=== PATIENT | female | born 1940 | race Hispanic/Latino ===

== ENCOUNTER 2016-09-07 12:37 | Inpatient (IN) | payer OTHER ==
[~2016-09-07] VITALS: Ht 175.3 cm; Wt 86.3 kg
[~2016-09-07 12:37] MED LIST: AMLODIPINE BESYL5 MG PO; ATIVAN0.5 MG PO; DIVALPROEX SOD250 M1 PO; ENALAPRIL MALEA20 MG PO; HYDROCHLOROTHIA25 MG PO; ISOSORBIDE DINI10 MG PO; LIPITOR40 MG PO; METOPROLOL TART25 MG PO; PREDNISONE20 MG PO; QUETIAPINE FUMA25 MG PO; RISPERDAL0.5 MG PO; SERTRALINE HCL50 MG PO; TRAZODONE HCL50 MG PO; VENTOLIN HFA18 GM IH
[2016-09-07 13:32] LABS: EOSINOPHIL (%) 1.5 % (0-5); EOSINOPHIL COUNT 0.1 K/uL (0-0.3); HEMATOCRIT 30.9 % (38.0-50.0); IMMATURE GRANULOCYTE (%) 0.2 % (0.0-0.7); INSTRUMENT ABS NEUTROPHIL CT 4.6 K/uL; LYMPHOCYTE COUNT 2.8 K/uL (1.0-2.8); MCH 28.3 PG (29.0-34.0); MCHC 33.7 G/DL (30.0-36.0); MCV 84.2 FL (86-99); MEAN PLAT.VOLUME 8.8 uM^3 (9.0-12.4); MONOCYTE (%) 9.9 % (3-12); MONOCYTE COUNT 0.8 K/uL (0-0.8); NEUTROPHIL (%) 54.5 % (45-76); NEUTROPHIL COUNT 4.6 K/uL (1.8-6.4); PLATELET COUNT 227 K/uL (156-360); RBC DIS.WIDTH-CV 12.9 % (11.8-14.6); RBC DIS.WIDTH-SD 39.2 % (39-53); RED BLOOD COUNT 3.67 M/uL (4.00-5.50); WHITE BLOOD COUNT 8.5 K/uL (4.1-10.2)
[2016-09-07 13:40] LABS: CHLORIDE 93 mEq/L (99-109); POTASSIUM 3.7 mEq/L (3.7-5.4); SODIUM 131 mEq/L (136-147)
[2016-09-07 13:44] LABS: ANION GAP 12 MEQ/L (2-14); PROTHROMBIN TIME 11.5 SEC (10.2-12.9)
[2016-09-07 13:45] LABS: TOTAL BILIRUBIN 0.3 mg/dL (0.0-1.0)
[2016-09-07 13:46] LABS: PTT 29.9 SEC (25-37)
[2016-09-07 13:47] LABS: GFR ESTIMATE (CALCULATED) 57 mL/min/
[2016-09-07 13:48] LABS: DIRECT BILIRUBIN 0.2 mg/dL (0.0-0.3)
[2016-09-07 13:53] LABS: TROP-I INTERPRETATION NEGATIVE; TROPONIN-I < 0.01 ng/mL (0.0-0.30)
[2016-09-07 14:01] LABS: GLUCOSE 88 mg/dL (70-99)
[2016-09-07 14:04] LABS: ALKALINE PHOSPHATASE 39 IU/L (3-129)
[2016-09-07 14:06] LABS: UREA NITROGEN (BUN) 17 mg/dL (9-23)
[2016-09-07 14:08] LABS: LIPASE 46 U/L (1.0-51.0)
[2016-09-07] MEDS ORDERED: ATORVASTATIN CA40 MG PO (15:05)
[2016-09-07] MEDS ORDERED: DONEPEZIL HCL10 MG PO (15:06)
[2016-09-07] MEDS ORDERED: METOPROLOL TART25 MG PO (15:07)
[2016-09-07] MEDS ORDERED: QUETIAPINE FUMA25 MG PO (15:07)
[2016-09-07] MEDS ORDERED: BUSPIRONE HCL5 MG PO (15:07)
[2016-09-07] MEDS ORDERED: ENALAPRIL MALEA20 MG PO (15:08)
[2016-09-07] MEDS ORDERED: OMEPRAZOLE20 MG PO (15:09)
[2016-09-07] MEDS ORDERED: LO-DOSE ASPIRIN81 M1 PO (15:10)
[2016-09-07] MEDS ORDERED: HYDROCHLOROTHIA25 MG PO (15:10)
[2016-09-07] MEDS ORDERED: NEURONTIN100 MG PO (15:11)
[2016-09-07] MEDS ORDERED: SYNTHROID25 MCG PO (15:11)
[2016-09-07] MEDS ORDERED: GABAPENTIN100 MG PO ×2 (16:03→16:04)
[2016-09-07] MEDS ORDERED: QUETIAPINE FUM100 MG PO (16:04)
[2016-09-07 19:14] LABS: TROP-I INTERPRETATION NEGATIVE; TROPONIN-I 0.01 ng/mL (0.0-0.30)
[2016-09-07 19:40] VITALS: BP 145/80
[2016-09-07 20:16] LABS: HEMATOCRIT 33.1 % (38.0-50.0); MCV 85.3 FL (86-99)
[2016-09-08 00:12] VITALS: BP 115/65
[2016-09-08 01:06] LABS: TROP-I INTERPRETATION NEGATIVE; TROPONIN-I < 0.01 ng/mL (0.0-0.30)
[2016-09-08 05:44] VITALS: BP 113/59
[2016-09-08 08:54] LABS: HEMATOCRIT 32.3 % (38.0-50.0); MCH 28.5 PG (29.0-34.0); MCHC 33.4 G/DL (30.0-36.0); MCV 85.2 FL (86-99); MEAN PLAT.VOLUME 8.8 uM^3 (9.0-12.4); PLATELET COUNT 221 K/uL (156-360); RBC DIS.WIDTH-CV 13.1 % (11.8-14.6); RBC DIS.WIDTH-SD 40.1 % (39-53); RED BLOOD COUNT 3.79 M/uL (4.00-5.50)
[2016-09-08 09:21] LABS: ALKALINE PHOSPHATASE 35 IU/L (3-129); ANION GAP 9 MEQ/L (2-14); CHLORIDE 100 MEQ/L (99-109); GFR ESTIMATE (CALCULATED) > 59 mL/min/; GLUCOSE 85 mg/dL (70-99); POTASSIUM 3.9 MEQ/L (3.7-5.4); SAMPLE HEMOLYSIS CHECK 0; SAMPLE ICTERIC CHECK 0; SAMPLE LIPEMIA CHECK 0; SODIUM 135 MEQ/L (136-147); TOTAL BILIRUBIN 0.4 MG/DL (0.0-1.0); UREA NITROGEN (BUN) 13 mg/dL (9-23)
[2016-09-08 11:34] VITALS: BP 141/75
[2016-09-08 14:03] LABS: MAGNESIUM 1.8 mg/dl (1.3-2.7)
[2016-09-08 16:10] VITALS: BP 113/57
[2016-09-08 20:29] LABS: HEMATOCRIT 33.9 % (38.0-50.0); MCV 86.7 FL (86-99)
[2016-09-08 20:32] VITALS: BP 174/82
[2016-09-09 00:04] VITALS: BP 138/66
[2016-09-09 08:27] LABS: HEMATOCRIT 33.9 % (38.0-50.0); MCV 87.4 FL (86-99)
[2016-09-09 08:43] VITALS: BP 143/69
[2016-09-09 12:53] LABS: POC NON-PRINT COM 1 ND
[2016-09-09 13:35] LABS: MAGNESIUM 1.8 mg/dl (1.3-2.7); SODIUM 136 MEQ/L (136-147)
[2016-09-09 14:20] LABS: ALKALINE PHOSPHATASE 36 IU/L (3-129); DIRECT BILIRUBIN 0.1 mg/dL (0.0-0.3); TOTAL BILIRUBIN 0.4 MG/DL (0.0-1.0)
[2016-09-09 16:01] VITALS: BP 174/80
[2016-09-09 18:26] VITALS: BP 130/62
[2016-09-09 19:50] VITALS: BP 149/73
[2016-09-09 20:07] LABS: HEMATOCRIT 32.6 % (38.0-50.0); MCV 86.5 FL (86-99)
[2016-09-09 23:16] VITALS: BP 160/85
[2016-09-10] VITALS (7 sets, daily range): BP systolic 142–188; BP diastolic 72–96
[2016-09-10 06:40] LABS: HEMATOCRIT 29.5 % (38.0-50.0); MCH 28.1 PG (29.0-34.0); MCHC 32.5 G/DL (30.0-36.0); MCV 86.3 FL (86-99); MEAN PLAT.VOLUME 9.2 uM^3 (9.0-12.4); PLATELET COUNT 231 K/uL (156-360); RBC DIS.WIDTH-CV 13.2 % (11.8-14.6); RBC DIS.WIDTH-SD 41.4 % (39-53); RED BLOOD COUNT 3.42 M/uL (4.00-5.50); WHITE BLOOD COUNT 7.3 K/uL (4.1-10.2)
[2016-09-10 20:41] LABS: HEMATOCRIT 34.1 % (38.0-50.0); MCV 86.5 FL (86-99)
[2016-09-11] VITALS (8 sets, daily range): BP systolic 137–215; BP diastolic 74–97
[2016-09-11 06:36] LABS: HEMATOCRIT 30.7 % (38.0-50.0); MCH 29.5 PG (29.0-34.0); MCHC 34.2 G/DL (30.0-36.0); MCV 86.2 FL (86-99); MEAN PLAT.VOLUME 9.3 uM^3 (9.0-12.4); PLATELET COUNT 240 K/uL (156-360); RBC DIS.WIDTH-CV 13.1 % (11.8-14.6); RBC DIS.WIDTH-SD 41.2 % (39-53); RED BLOOD COUNT 3.56 M/uL (4.00-5.50); WHITE BLOOD COUNT 8.1 K/uL (4.1-10.2)
[2016-09-11 20:46] LABS: HEMATOCRIT 34.8 % (38.0-50.0); MCV 85.9 FL (86-99)
[2016-09-12 04:36] VITALS: BP 139/73
[2016-09-12 06:58] LABS: HEMATOCRIT 30.1 % (38.0-50.0); MCH 29.4 PG (29.0-34.0); MCHC 34.2 G/DL (30.0-36.0); MEAN PLAT.VOLUME 9.3 uM^3 (9.0-12.4); PLATELET COUNT 238 K/uL (156-360); RBC DIS.WIDTH-CV 13.3 % (11.8-14.6); RBC DIS.WIDTH-SD 41.8 % (39-53); WHITE BLOOD COUNT 9.1 K/uL (4.1-10.2)
[2016-09-12 07:26] LABS: ANION GAP 9 MEQ/L (2-14); CHLORIDE 101 MEQ/L (99-109); GFR ESTIMATE (CALCULATED) > 59 mL/min/; GLUCOSE 86 mg/dL (70-99); POTASSIUM 3.2 MEQ/L (3.7-5.4); SAMPLE HEMOLYSIS CHECK 0; SAMPLE ICTERIC CHECK 0; SAMPLE LIPEMIA CHECK 0; SODIUM 137 MEQ/L (136-147); UREA NITROGEN (BUN) 8 mg/dL (9-23)
[2016-09-12 08:25] VITALS: BP 147/69
[2016-09-12 12:17] VITALS: BP 156/77
[2016-09-12 16:44] VITALS: BP 162/75
== END 2016-09-12 17:08 | disposition home health service (06) | DRG 378 ==
LOC: EME 12:37 → EDOF 16:33 → 3EAST 16:33 → EDSEX 09-12 17:08
PROVIDERS: Emergency Medicine; Internal Medicine; Specialist
DX: K92.1 Melena (principal); D64.9 Anemia, unspecified; E87.1 Hypo-osmolality and hyponatremia; I47.2 Ventricular tachycardia; K25.9 Gastric ulcer, unspecified as acute or chronic, without hemorrhage or perforation; K29.60 Other gastritis without bleeding; D12.3 Benign neoplasm of transverse colon; D12.4 Benign neoplasm of descending colon; K64.8 Other hemorrhoids; I49.3 Ventricular premature depolarization; K21.9 Gastro-esophageal reflux disease without esophagitis; J44.9 Chronic obstructive pulmonary disease, unspecified; I10 Essential (primary) hypertension; I25.10 Atherosclerotic heart disease of native coronary artery without angina pectoris; F03.90 Unspecified dementia, unspecified severity, without behavioral disturbance, psychotic disturbance, mood disturbance, and anxiety; E03.9 Hypothyroidism, unspecified; E78.5 Hyperlipidemia, unspecified; K44.9 Diaphragmatic hernia without obstruction or gangrene; K57.30 Diverticulosis of large intestine without perforation or abscess without bleeding; R13.10 Dysphagia, unspecified; M19.90 Unspecified osteoarthritis, unspecified site; R91.1 Solitary pulmonary nodule; I71.4 Abdominal aortic aneurysm, without rupture; E66.9 Obesity, unspecified; I25.2 Old myocardial infarction; Z79.82 Long term (current) use of aspirin; Z87.11 Personal history of peptic ulcer disease; Z86.19 Personal history of other infectious and parasitic diseases; Z68.28 Body mass index [BMI] 28.0-28.9, adult
CPT/HCPCS: 73560; 74177; 80048; 80053; 80076; 82272; 83690; 83735; 83880; 84295; 84443; 84484; 85014; 85018; 85025; 85027; 85610; 85730; 86900; 86901; 88305; 88342 TC; 93005; 93306; 97530 GO; 99281; 99285; C9113; J0360; J7030; J7040

== ENCOUNTER 2016-11-15 20:11 | Emergency (ER) | payer OTHER ==
[~2016-11-15] VITALS: Ht 175.3 cm; Wt 82.6 kg
[~2016-11-15 20:11] MED LIST changes: +ATORVASTATIN CA40 MG PO; +BUSPIRONE HCL5 MG PO; +DONEPEZIL HCL10 MG PO; +GABAPENTIN100 MG PO; +LO-DOSE ASPIRIN81 M1 PO; +NEURONTIN100 MG PO; +OMEPRAZOLE20 MG PO; +QUETIAPINE FUM100 MG PO; +SYNTHROID25 MCG PO
[2016-11-15 23:16] LABS: EOSINOPHIL (%) 0.8 % (0-5); EOSINOPHIL COUNT 0.1 K/uL (0-0.3); HEMATOCRIT 34.9 % (38.0-50.0); IMMATURE GRANULOCYTE (%) 0.2 % (0.0-0.7); INSTRUMENT ABS NEUTROPHIL CT 5.5 K/uL; LYMPHOCYTE COUNT 2.3 K/uL (1.0-2.8); MCH 27.4 PG (29.0-34.0); MCV 83.1 FL (86-99); MEAN PLAT.VOLUME 8.9 uM^3 (9.0-12.4); MONOCYTE (%) 6.9 % (3-12); MONOCYTE COUNT 0.6 K/uL (0-0.8); NEUTROPHIL (%) 64.9 % (45-76); NEUTROPHIL COUNT 5.5 K/uL (1.8-6.4); PLATELET COUNT 324 K/uL (156-360); RBC DIS.WIDTH-SD 42.8 % (39-53); WHITE BLOOD COUNT 8.4 K/uL (4.1-10.2)
[2016-11-15 23:27] LABS: CHLORIDE 102 mEq/L (99-109); POTASSIUM 3.8 mEq/L (3.7-5.4); SODIUM 135 mEq/L (136-147)
[2016-11-15 23:29] LABS: GLUCOSE 123 mg/dL (70-99)
[2016-11-15 23:30] LABS: ANION GAP 12 MEQ/L (2-14)
[2016-11-15 23:31] LABS: TOTAL BILIRUBIN 0.4 mg/dL (0.0-1.0)
[2016-11-15 23:32] LABS: ALKALINE PHOSPHATASE 50 IU/L (3-129)
[2016-11-15 23:33] LABS: GFR ESTIMATE (CALCULATED) > 59 mL/min/
[2016-11-15 23:34] LABS: UREA NITROGEN (BUN) 11 mg/dL (9-23)
[2016-11-15 23:45] LABS: TROP-I INTERPRETATION NEGATIVE; TROPONIN-I 0.01 ng/mL (0.0-0.30)
[2016-11-15 23:56] LABS: LIPASE 108 U/L (1.0-51.0)
[2016-11-16] MEDS ORDERED: NORVASC5 MG PO (03:04)
[2016-11-16] MEDS ORDERED: PRILOSEC OTC20 MG PO (03:09)
[2016-11-16 04:19] VITALS: BP 90/64
== END 2016-11-16 04:20 | disposition home or self-care (01) ==
LOC: EME 20:11 → EDSEX 20:11 → EME 11-16 04:20
PROVIDERS: Emergency Medicine
DX: I16.0 Hypertensive urgency (principal); R10.13 Epigastric pain; J44.9 Chronic obstructive pulmonary disease, unspecified; I10 Essential (primary) hypertension; I25.2 Old myocardial infarction; F03.90 Unspecified dementia, unspecified severity, without behavioral disturbance, psychotic disturbance, mood disturbance, and anxiety
CPT/HCPCS: 71275; 80053; 83690; 84484; 85025; 99281; 99285; J2405; J2765; S0028

== ENCOUNTER 2017-01-27 17:42 | Observation (INO) | payer OTHER ==
[~2017-01-27] VITALS: Ht 175.3 cm; Wt 80.4 kg
[~2017-01-27 17:42] MED LIST changes: +NORVASC5 MG PO; +PRILOSEC OTC20 MG PO; -QUETIAPINE FUM100 MG PO
[2017-01-27 18:33] LABS: HEMATOCRIT 32.6 % (38.0-50.0); MCH 25.9 PG (29.0-34.0); MCHC 32.5 G/DL (30.0-36.0); MCV 79.5 FL (86-99); MEAN PLAT.VOLUME 9.1 uM^3 (9.0-12.4); PLATELET COUNT 296 K/uL (156-360); RBC DIS.WIDTH-CV 14.6 % (11.8-14.6); RBC DIS.WIDTH-SD 41.6 % (39-53); WHITE BLOOD COUNT 8.8 K/uL (4.1-10.2)
[2017-01-27 18:41] LABS: CHLORIDE 103 mEq/L (99-109); POTASSIUM 3.3 mEq/L (3.7-5.4); SODIUM 137 mEq/L (136-147)
[2017-01-27 18:43] LABS: GLUCOSE 132 mg/dL (70-99)
[2017-01-27 18:44] LABS: ANION GAP 10 MEQ/L (2-14)
[2017-01-27 18:45] LABS: TOTAL BILIRUBIN 0.4 mg/dL (0.0-1.0)
[2017-01-27 18:47] LABS: ALKALINE PHOSPHATASE 54 IU/L (3-129); GFR ESTIMATE (CALCULATED) > 59 mL/min/ (58.99-99999)
[2017-01-27 18:48] LABS: UREA NITROGEN (BUN) 17 mg/dL (9-23)
[2017-01-27 19:14] LABS: ADD MIUA? YES; BILIRUBIN NEGATIVE; BLOOD SMALL; COLOR YELLOW ((YELLOW)); GLUCOSE (STRIP) NEGATIVE; KETONES NEGATIVE; LEUKOCYTES NEGATIVE; NITRITE NEGATIVE; PROTEIN (STRIP) 100; SPECIFIC GRAVITY 1.025 (1.000-1.030); UROBILINOGEN 0.2 MG/DL (0.2-1.0)
[2017-01-27 19:26] LABS: BACTERIA RARE /HPF; EPITHELIAL CELLS RARE /HPF; HYALINE CASTS 0-5 /LPF; MUCUS 2+ /LPF; UCUL ADDED? NO; WHITE BLOOD CELLS 0-5 /HPF (0-5)
[2017-01-27 20:46] LABS: TROP-I INTERPRETATION NEGATIVE; TROPONIN-I 0.02 ng/mL (0.0-0.30)
[2017-01-27] MEDS ORDERED: SERTRALINE HCL100 MG PO (22:32)
[2017-01-27] MEDS ORDERED: LO-DOSE ASPIRIN81 M2 PO (22:34)
[2017-01-27] MEDS ORDERED: TRAMADOL HCL50 MG PO (22:35)
[2017-01-27] MEDS ORDERED: MOMETASONE FURO17 GM BOTH NARES (22:36)
[2017-01-27] MEDS ORDERED: COMBIVENT RESPIM4 GM IH (22:43)
[2017-01-28 00:43] VITALS: BP 137/67
[2017-01-28 03:14] VITALS: BP 152/80
[2017-01-28 03:29] LABS: HEMATOCRIT 33.2 % (38.0-50.0); MCH 26.2 PG (29.0-34.0); MCHC 33.1 G/DL (30.0-36.0); MEAN PLAT.VOLUME 9.6 uM^3 (9.0-12.4); PLATELET COUNT 308 K/uL (156-360); RBC DIS.WIDTH-CV 14.6 % (11.8-14.6); RBC DIS.WIDTH-SD 42.5 % (39-53)
[2017-01-28 03:38] LABS: CHLORIDE 103 mEq/L (99-109); POTASSIUM 3.4 mEq/L (3.7-5.4); SODIUM 136 mEq/L (136-147)
[2017-01-28 03:40] LABS: GLUCOSE 124 mg/dL (70-99)
[2017-01-28 03:41] LABS: ANION GAP 11 MEQ/L (2-14)
[2017-01-28 03:44] LABS: GFR ESTIMATE (CALCULATED) > 59 mL/min/ (58.99-99999); UREA NITROGEN (BUN) 20 mg/dL (9-23)
[2017-01-28 03:50] LABS: TROP-I INTERPRETATION NEGATIVE; TROPONIN-I 0.03 ng/mL (0.0-0.30)
[2017-01-28 10:00] VITALS: BP 168/95
[2017-01-28 12:03] VITALS: BP 171/83
[2017-01-28] MEDS ORDERED: FLAGYL500 MG PO (14:16)
[2017-01-28 15:50] LABS: HEMATOCRIT 31.1 % (38.0-50.0); MCH 26.4 PG (29.0-34.0); MCHC 32.5 G/DL (30.0-36.0); MCV 81.2 FL (86-99); MEAN PLAT.VOLUME 9.5 uM^3 (9.0-12.4); PLATELET COUNT 279 K/uL (156-360); RBC DIS.WIDTH-CV 14.8 % (11.8-14.6); RBC DIS.WIDTH-SD 43.8 % (39-53); RED BLOOD COUNT 3.83 M/uL (4.00-5.50); WHITE BLOOD COUNT 10.7 K/uL (4.1-10.2)
[2017-01-28 16:12] LABS: TROP-I INTERPRETATION NEGATIVE; TROPONIN-I 0.02 ng/mL (0.0-0.30)
[2017-01-28 17:27] VITALS: BP 166/75
== END 2017-01-28 18:32 | disposition home or self-care (01) ==
LOC: EME 17:42 → EDOF 23:00 → 5WEST 23:00 → ENRESERV 23:04 → 5WEST 01-28 00:25
PROVIDERS: Emergency Medicine; Hospitalist; Nurse Practitioner Family; Physician Assistant
DX: K52.9 Noninfective gastroenteritis and colitis, unspecified (principal); I16.0 Hypertensive urgency; I10 Essential (primary) hypertension; J44.9 Chronic obstructive pulmonary disease, unspecified; E03.9 Hypothyroidism, unspecified; I25.10 Atherosclerotic heart disease of native coronary artery without angina pectoris; E78.5 Hyperlipidemia, unspecified; K44.9 Diaphragmatic hernia without obstruction or gangrene; F03.90 Unspecified dementia, unspecified severity, without behavioral disturbance, psychotic disturbance, mood disturbance, and anxiety; F29 Unspecified psychosis not due to a substance or known physiological condition; Z79.82 Long term (current) use of aspirin
CPT/HCPCS: 70450; 71020; 80048; 80053; 81003; 83630; 84484; 85027; 87493; 87502; 93005; 99281; 99285; C9113; G0378; J1644; J2405; J7030; S0030

== ENCOUNTER 2017-02-01 17:37 | Inpatient (IN) | payer OTHER ==
[~2017-02-01] VITALS: Ht 175.3 cm; Wt 89.6 kg
[~2017-02-01 17:37] MED LIST changes: +COMBIVENT RESPIM4 GM IH; +FLAGYL500 MG PO; +LO-DOSE ASPIRIN81 M2 PO; +METOPROLOL TART50 MG PO; +MOMETASONE FURO17 GM BOTH NARES; +SERTRALINE HCL100 MG PO; +TRAMADOL HCL50 MG PO
[2017-02-01 18:51] LABS: HEMATOCRIT 30.6 % (38.0-50.0); MCH 25.9 PG (29.0-34.0); MCHC 32.7 G/DL (30.0-36.0); MCV 79.3 FL (86-99); PLATELET COUNT 255 K/uL (156-360); RBC DIS.WIDTH-SD 42.6 % (39-53); RED BLOOD COUNT 3.86 M/uL (4.00-5.50); WHITE BLOOD COUNT 11.4 K/uL (4.1-10.2)
[2017-02-01 18:59] LABS: INTER. NORMALIZED RATIO 1.2
[2017-02-01 19:00] LABS: ALBUMIN 3.5 g/dL (3.2-4.8)
[2017-02-01 19:01] LABS: CHLORIDE 99 mEq/L (99-109); POTASSIUM 3.5 mEq/L (3.7-5.4); SODIUM 132 mEq/L (136-147)
[2017-02-01 19:03] LABS: GLUCOSE 115 mg/dL (70-99); TOTAL PROTEIN 6.7 g/dL (6.4-8.3)
[2017-02-01 19:06] LABS: ALKALINE PHOSPHATASE 53 IU/L (3-129); CREATININE 1.2 mg/dL (0.6-1.3); GFR ESTIMATE (CALCULATED) > 59 mL/min/ (58.99-99999)
[2017-02-01 19:08] LABS: AST (GOT) 16 IU/L (2-34); TOTAL BILIRUBIN 0.3 mg/dL (0.0-1.0); UREA NITROGEN (BUN) 25 mg/dL (9-23)
[2017-02-01 19:09] LABS: ALT (GPT) 10 IU/L (3-49)
[2017-02-01 19:10] LABS: LIPASE 18 U/L (1.0-51.0)
[2017-02-01 19:16] LABS: TROP-I INTERPRETATION NEGATIVE; TROPONIN-I < 0.01 ng/mL (0.0-0.30)
[2017-02-01 21:21] LABS: APPEARANCE CLEAR ((CLEAR)); BILIRUBIN NEGATIVE; BLOOD NEGATIVE; COLOR YELLOW ((YELLOW)); GLUCOSE (STRIP) NEGATIVE; KETONES NEGATIVE; LEUKOCYTES TRACE; NITRITE NEGATIVE; PROTEIN (STRIP) 30; SPECIFIC GRAVITY 1.016 (1.000-1.030); UROBILINOGEN 0.2 MG/DL (0.2-1.0)
[2017-02-01 21:24] LABS: BACTERIA NONE SEEN /HPF; EPITHELIAL CELLS NONE SEEN /HPF; HYALINE CASTS 0-5 /LPF; MUCUS TRACE /LPF; RED BLOOD CELLS 0-5 /HPF (0-5); WHITE BLOOD CELLS 0-5 /HPF (0-5)
[2017-02-02] MEDS ORDERED: DOXYCYCLINE HY100 MG PO (01:04)
[2017-02-02 03:12] VITALS: BP 177/86
[2017-02-02 07:35] VITALS: BP 142/79
[2017-02-02 07:47] LABS: HEMATOCRIT 28.9 % (38.0-50.0); HEMOGLOBIN 9.2 G/DL (12.5-16.6); MCH 25.6 PG (29.0-34.0); MCHC 31.8 G/DL (30.0-36.0); MCV 80.3 FL (86-99); PLATELET COUNT 263 K/uL (156-360); RBC DIS.WIDTH-SD 43.2 % (39-53); WHITE BLOOD COUNT 10.9 K/uL (4.1-10.2)
[2017-02-02 08:13] LABS: CHLORIDE 101 MEQ/L (99-109); CREATININE 1.2 MG/DL (0.6-1.3); GFR ESTIMATE (CALCULATED) > 59 mL/min/ (58.99-99999); GLUCOSE 95 mg/dL (70-99); POTASSIUM 3.5 MEQ/L (3.7-5.4); SODIUM 138 MEQ/L (136-147); UREA NITROGEN (BUN) 19 mg/dL (9-23)
[2017-02-02 11:03] VITALS: BP 146/87
[2017-02-02 15:28] VITALS: BP 129/88
[2017-02-02 19:10] VITALS: BP 157/70
[2017-02-03] VITALS (9 sets, daily range): BP systolic 139–192; BP diastolic 67–92
[2017-02-03 06:29] LABS: BASOPHIL (%) 0.4 % (0-1); EOSINOPHIL COUNT 0.2 K/uL (0-0.3); HEMATOCRIT 28.6 % (38.0-50.0); HEMOGLOBIN 8.9 G/DL (12.5-16.6); IMMATURE GRANULOCYTE (%) 0.4 % (0.0-0.7); LYMPHOCYTE (%) 30.9 % (15-42); LYMPHOCYTE COUNT 2.4 K/uL (1.0-2.8); MCH 25.6 PG (29.0-34.0); MCHC 31.1 G/DL (30.0-36.0); MCV 82.2 FL (86-99); MONOCYTE (%) 9.7 % (3-12); MONOCYTE COUNT 0.8 K/uL (0-0.8); NEUTROPHIL (%) 55.6 % (45-76); NEUTROPHIL COUNT 4.3 K/uL (1.8-6.4); PLATELET COUNT 258 K/uL (156-360); RBC DIS.WIDTH-CV 15.6 % (11.8-14.6); RED BLOOD COUNT 3.48 M/uL (4.00-5.50); WHITE BLOOD COUNT 7.7 K/uL (4.1-10.2)
[2017-02-03 06:47] LABS: CHLORIDE 106 MEQ/L (99-109); CREATININE 1.1 MG/DL (0.6-1.3); GFR ESTIMATE (CALCULATED) > 59 mL/min/ (58.99-99999); GLUCOSE 77 mg/dL (70-99); POTASSIUM 4.1 MEQ/L (3.7-5.4); SODIUM 139 MEQ/L (136-147); UREA NITROGEN (BUN) 13 mg/dL (9-23)
[2017-02-04] VITALS (9 sets, daily range): BP systolic 120–187; BP diastolic 58–98
[2017-02-04 06:04] LABS: HEMATOCRIT 28.2 % (38.0-50.0); HEMOGLOBIN 8.9 G/DL (12.5-16.6); MCV 81.7 FL (86-99)
[2017-02-04 15:37] LABS: HEMATOCRIT 32.1 % (38.0-50.0); MCH 26.6 PG (29.0-34.0); MCHC 31.2 G/DL (30.0-36.0); MCV 85.4 FL (86-99); PLATELET COUNT 292 K/uL (156-360); RBC DIS.WIDTH-CV 15.7 % (11.8-14.6); RED BLOOD COUNT 3.76 M/uL (4.00-5.50); WHITE BLOOD COUNT 14.3 K/uL (4.1-10.2)
[2017-02-04 15:58] LABS: CHLORIDE 104 MEQ/L (99-109); GFR ESTIMATE (CALCULATED) > 59 mL/min/ (58.99-99999); GLUCOSE 122 mg/dL (70-99); POTASSIUM 4.7 MEQ/L (3.7-5.4); SODIUM 136 MEQ/L (136-147); UREA NITROGEN (BUN) 12 mg/dL (9-23)
[2017-02-04 17:07] LABS: BASE EXCESS -9.4 mEq/L (-3 to +3); BICARBONATE 16.3 mEq/L (22-26); CARBOXY HGB 1.8 % (0-5); METHEMOGLOBIN 1.4 % (0-1.5); PCO2 34 mm Hg (35-45); PO2 103 mm Hg (80-100)
[2017-02-04 17:08] LABS: COMMENTS - BLOOD GASES A+C+; DEVICE VENT; FI02 40 %; MECHANICAL RATE 25 resp/min; MODE AC; PEEP 8 CM/H20; SITE RR; TIDAL VOLUME 500 ML; TOTAL RESP RATE 25 resp/min; pH 7.29 (7.35-7.45)
[2017-02-05] VITALS (24 sets, daily range): BP systolic 131–199; BP diastolic 58–102
[2017-02-05 05:43] LABS: HEMATOCRIT 28.4 % (38.0-50.0); HEMOGLOBIN 8.9 G/DL (12.5-16.6); MCH 25.8 PG (29.0-34.0); MCHC 31.3 G/DL (30.0-36.0); MCV 82.3 FL (86-99); PLATELET COUNT 286 K/uL (156-360); RBC DIS.WIDTH-CV 15.7 % (11.8-14.6); RBC DIS.WIDTH-SD 46.5 % (39-53); RED BLOOD COUNT 3.45 M/uL (4.00-5.50); WHITE BLOOD COUNT 12.5 K/uL (4.1-10.2)
[2017-02-05 06:22] LABS: ALBUMIN 3.1 G/DL (3.2-4.8); ALKALINE PHOSPHATASE 36 IU/L (3-129); ALT (GPT) 10 IU/L (3-49); AST (GOT) 23 IU/L (2-34); CHLORIDE 105 MEQ/L (99-109); CREATININE 1.1 MG/DL (0.6-1.3); GFR ESTIMATE (CALCULATED) > 59 mL/min/ (58.99-99999); POTASSIUM 3.9 MEQ/L (3.7-5.4); SODIUM 138 MEQ/L (136-147); TOTAL BILIRUBIN 0.4 MG/DL (0.0-1.0); TOTAL PROTEIN 5.2 G/DL (6.4-8.3); UREA NITROGEN (BUN) 13 mg/dL (9-23)
[2017-02-05 06:23] LABS: GLUCOSE 87 mg/dL (70-99)
[2017-02-05 07:46] LABS: BASE EXCESS -3.9 mEq/L (-3 to +3); BICARBONATE 18.9 mEq/L (22-26); CARBOXY HGB 1.8 % (0-5); COMMENTS - BLOOD GASES A+C+; DEVICE 840 PB; METHEMOGLOBIN 1.7 % (0-1.5); PCO2 26 mm Hg (35-45); PO2 73 mm Hg (80-100); SITE LR; pH 7.47 (7.35-7.45)
[2017-02-05 07:47] LABS: FI02 30 %; MECHANICAL RATE 25 resp/min; MODE AC; PEEP 8 CM/H20; TIDAL VOLUME 500 ML; TOTAL RESP RATE 25 resp/min
[2017-02-05 09:55] LABS: HIGH-SENS C-REACTIVE PROTEIN 3.74 MG/DL (0.02-0.20)
[2017-02-05 14:14] LABS: BASE EXCESS -4.3 mEq/L (-3 to +3); BICARBONATE 19.2 mEq/L (22-26); CARBOXY HGB 1.6 % (0-5); COMMENTS - BLOOD GASES A+C+; METHEMOGLOBIN 1.4 % (0-1.5); PCO2 29 mm Hg (35-45); PO2 80 mm Hg (80-100); SITE LR; pH 7.43 (7.35-7.45)
[2017-02-05 14:15] LABS: DEVICE 980 PB; FI02 30 %; MODE TC; TIDAL VOLUME 500 ML; TOTAL RESP RATE 16 resp/min
[2017-02-05 15:42] LABS: TROP-I INTERPRETATION NEGATIVE; TROPONIN-I 0.15 ng/mL (0.0-0.30)
[2017-02-06] VITALS (15 sets, daily range): BP systolic 129–192; BP diastolic 77–107
[2017-02-06 10:44] LABS: HEMATOCRIT 27.2 % (38.0-50.0); HEMOGLOBIN 8.6 G/DL (12.5-16.6); MCH 26.1 PG (29.0-34.0); MCHC 31.6 G/DL (30.0-36.0); MCV 82.4 FL (86-99); PLATELET COUNT 263 K/uL (156-360); RBC DIS.WIDTH-CV 16.1 % (11.8-14.6); RBC DIS.WIDTH-SD 47.8 % (39-53); WHITE BLOOD COUNT 12.9 K/uL (4.1-10.2)
[2017-02-06 11:20] LABS: CHLORIDE 107 MEQ/L (99-109); POTASSIUM 3.5 MEQ/L (3.7-5.4); SODIUM 140 MEQ/L (136-147)
[2017-02-06 11:37] LABS: ALBUMIN 3.1 G/DL (3.2-4.8); ALKALINE PHOSPHATASE 41 IU/L (3-129); ALT (GPT) 8 IU/L (3-49); AST (GOT) 21 IU/L (2-34); CREATININE 0.8 MG/DL (0.6-1.3); GFR ESTIMATE (CALCULATED) > 59 mL/min/ (58.99-99999); GLUCOSE 84 mg/dL (70-99); TOTAL PROTEIN 5.3 G/DL (6.4-8.3); UREA NITROGEN (BUN) 9 mg/dL (9-23)
[2017-02-06 11:54] LABS: TOTAL BILIRUBIN 0.6 MG/DL (0.0-1.0)
[2017-02-07] VITALS (21 sets, daily range): BP systolic 109–166; BP diastolic 73–102
[2017-02-07 05:55] LABS: BASOPHIL (%) 0.2 % (0-1); EOSINOPHIL (%) 2.5 % (0-5); EOSINOPHIL COUNT 0.3 K/uL (0-0.3); HEMATOCRIT 27.1 % (38.0-50.0); HEMOGLOBIN 8.4 G/DL (12.5-16.6); IMMATURE GRANULOCYTE (%) 0.7 % (0.0-0.7); LYMPHOCYTE (%) 12.6 % (15-42); LYMPHOCYTE COUNT 1.5 K/uL (1.0-2.8); MCH 25.5 PG (29.0-34.0); MCV 82.1 FL (86-99); MONOCYTE (%) 6.7 % (3-12); MONOCYTE COUNT 0.8 K/uL (0-0.8); NEUTROPHIL (%) 77.3 % (45-76); NEUTROPHIL COUNT 9.1 K/uL (1.8-6.4); PLATELET COUNT 278 K/uL (156-360); RBC DIS.WIDTH-CV 16.1 % (11.8-14.6); RBC DIS.WIDTH-SD 48.2 % (39-53); WHITE BLOOD COUNT 11.8 K/uL (4.1-10.2)
[2017-02-07 06:32] LABS: CHLORIDE 104 MEQ/L (99-109); CREATININE 0.7 MG/DL (0.6-1.3); GFR ESTIMATE (CALCULATED) > 59 mL/min/ (58.99-99999); GLUCOSE 91 mg/dL (70-99); POTASSIUM 3.2 MEQ/L (3.7-5.4); SODIUM 138 MEQ/L (136-147); UREA NITROGEN (BUN) 8 mg/dL (9-23)
[2017-02-08] VITALS (19 sets, daily range): BP systolic 117–167; BP diastolic 75–107
[2017-02-08 05:38] LABS: HEMATOCRIT 27.3 % (38.0-50.0); HEMOGLOBIN 8.7 G/DL (12.5-16.6); MCH 26.4 PG (29.0-34.0); MCHC 31.9 G/DL (30.0-36.0); MCV 82.7 FL (86-99); PLATELET COUNT 293 K/uL (156-360); RBC DIS.WIDTH-CV 16.4 % (11.8-14.6); RBC DIS.WIDTH-SD 49.2 % (39-53); WHITE BLOOD COUNT 12.1 K/uL (4.1-10.2)
[2017-02-08 06:13] LABS: CHLORIDE 104 MEQ/L (99-109); CREATININE 0.9 MG/DL (0.6-1.3); GFR ESTIMATE (CALCULATED) > 59 mL/min/ (58.99-99999); GLUCOSE 99 mg/dL (70-99); POTASSIUM 3.4 MEQ/L (3.7-5.4); SODIUM 141 MEQ/L (136-147); UREA NITROGEN (BUN) 8 mg/dL (9-23)
[2017-02-09] VITALS: BP 141/88
[2017-02-09 02:00] VITALS: BP 131/78
[2017-02-09 04:00] VITALS: BP 145/82
[2017-02-09 05:09] LABS: CHLORIDE 104 mEq/L (99-109); POTASSIUM 3.2 mEq/L (3.7-5.4); SODIUM 138 mEq/L (136-147)
[2017-02-09 05:10] LABS: GLUCOSE 118 mg/dL (70-99)
[2017-02-09 05:13] LABS: HEMATOCRIT 25.9 % (38.0-50.0); HEMOGLOBIN 8.4 G/DL (12.5-16.6); MCH 26.5 PG (29.0-34.0); MCHC 32.4 G/DL (30.0-36.0); MCV 81.7 FL (86-99); PLATELET COUNT 320 K/uL (156-360); RBC DIS.WIDTH-CV 16.5 % (11.8-14.6); RBC DIS.WIDTH-SD 48.9 % (39-53); RED BLOOD COUNT 3.17 M/uL (4.00-5.50); WHITE BLOOD COUNT 14.6 K/uL (4.1-10.2)
[2017-02-09 05:14] LABS: CREATININE 0.9 mg/dL (0.6-1.3); GFR ESTIMATE (CALCULATED) > 59 mL/min/ (58.99-99999)
[2017-02-09 05:15] LABS: UREA NITROGEN (BUN) 12 mg/dL (9-23)
[2017-02-09 06:00] VITALS: BP 129/85
[2017-02-09 08:00] VITALS: BP 131/92
[2017-02-09 14:00] VITALS: BP 152/83
[2017-02-10] VITALS: BP 138/73
[2017-02-10 06:46] VITALS: BP 135/85
[2017-02-10 11:40] VITALS: BP 133/78
[2017-02-10 13:38] LABS: BASOPHIL (%) 0.2 % (0-1); EOSINOPHIL (%) 0.7 % (0-5); EOSINOPHIL COUNT 0.1 K/uL (0-0.3); HEMATOCRIT 27.3 % (38.0-50.0); HEMOGLOBIN 8.7 G/DL (12.5-16.6); LYMPHOCYTE (%) 10.4 % (15-42); LYMPHOCYTE COUNT 1.3 K/uL (1.0-2.8); MCH 25.7 PG (29.0-34.0); MCHC 31.9 G/DL (30.0-36.0); MCV 80.8 FL (86-99); MONOCYTE (%) 9.4 % (3-12); MONOCYTE COUNT 1.1 K/uL (0-0.8); NEUTROPHIL (%) 78.3 % (45-76); NEUTROPHIL COUNT 9.5 K/uL (1.8-6.4); PLATELET COUNT 354 K/uL (156-360); RBC DIS.WIDTH-CV 16.7 % (11.8-14.6); RBC DIS.WIDTH-SD 48.8 % (39-53); RED BLOOD COUNT 3.38 M/uL (4.00-5.50); WHITE BLOOD COUNT 12.1 K/uL (4.1-10.2)
[2017-02-10 13:58] LABS: ALBUMIN 2.9 G/DL (3.2-4.8); ALKALINE PHOSPHATASE 69 IU/L (3-129); ALT (GPT) 7 IU/L (3-49); AST (GOT) 15 IU/L (2-34); CHLORIDE 99 MEQ/L (99-109); CREATININE 0.8 MG/DL (0.6-1.3); GFR ESTIMATE (CALCULATED) > 59 mL/min/ (58.99-99999); GLUCOSE 112 mg/dL (70-99); MAGNESIUM 1.7 mg/dl (1.3-2.7); PHOSPHORUS 3.8 mg/dL (2.5-4.9); POTASSIUM 3.3 MEQ/L (3.7-5.4); SODIUM 138 MEQ/L (136-147); TOTAL BILIRUBIN 0.6 MG/DL (0.0-1.0); TOTAL PROTEIN 5.8 G/DL (6.4-8.3); UREA NITROGEN (BUN) 12 mg/dL (9-23)
[2017-02-10 15:33] VITALS: BP 125/68
[2017-02-10 20:10] VITALS: BP 142/74
[2017-02-11] VITALS (7 sets, daily range): BP systolic 127–141; BP diastolic 69–87
[2017-02-11 06:43] LABS: BASOPHIL (%) 0.2 % (0-1); EOSINOPHIL (%) 1.4 % (0-5); EOSINOPHIL COUNT 0.2 K/uL (0-0.3); HEMATOCRIT 26.1 % (38.0-50.0); HEMOGLOBIN 8.6 G/DL (12.5-16.6); LYMPHOCYTE (%) 12.7 % (15-42); LYMPHOCYTE COUNT 1.6 K/uL (1.0-2.8); MCH 26.3 PG (29.0-34.0); MCV 79.8 FL (86-99); MONOCYTE (%) 10.3 % (3-12); MONOCYTE COUNT 1.3 K/uL (0-0.8); NEUTROPHIL (%) 74.4 % (45-76); NEUTROPHIL COUNT 9.1 K/uL (1.8-6.4); PLATELET COUNT 384 K/uL (156-360); RBC DIS.WIDTH-CV 16.6 % (11.8-14.6); RBC DIS.WIDTH-SD 47.8 % (39-53); RED BLOOD COUNT 3.27 M/uL (4.00-5.50); WHITE BLOOD COUNT 12.2 K/uL (4.1-10.2)
[2017-02-11 07:16] LABS: CHLORIDE 97 MEQ/L (99-109); CREATININE 0.9 MG/DL (0.6-1.3); GFR ESTIMATE (CALCULATED) > 59 mL/min/ (58.99-99999); GLUCOSE 110 mg/dL (70-99); POTASSIUM 2.9 MEQ/L (3.7-5.4); SODIUM 136 MEQ/L (136-147); UREA NITROGEN (BUN) 11 mg/dL (9-23)
[2017-02-12 03:25] VITALS: BP 134/68
[2017-02-12 06:09] LABS: BASOPHIL (%) 0.2 % (0-1); EOSINOPHIL (%) 2.2 % (0-5); EOSINOPHIL COUNT 0.2 K/uL (0-0.3); HEMATOCRIT 26.8 % (38.0-50.0); HEMOGLOBIN 8.5 G/DL (12.5-16.6); IMMATURE GRANULOCYTE (%) 0.7 % (0.0-0.7); LYMPHOCYTE (%) 16.3 % (15-42); LYMPHOCYTE COUNT 1.7 K/uL (1.0-2.8); MCH 25.5 PG (29.0-34.0); MCHC 31.7 G/DL (30.0-36.0); MCV 80.5 FL (86-99); MONOCYTE (%) 11.4 % (3-12); MONOCYTE COUNT 1.2 K/uL (0-0.8); NEUTROPHIL (%) 69.2 % (45-76); NEUTROPHIL COUNT 7.1 K/uL (1.8-6.4); PLATELET COUNT 351 K/uL (156-360); RBC DIS.WIDTH-CV 16.4 % (11.8-14.6); RBC DIS.WIDTH-SD 47.8 % (39-53); RED BLOOD COUNT 3.33 M/uL (4.00-5.50); WHITE BLOOD COUNT 10.2 K/uL (4.1-10.2)
[2017-02-12 06:46] VITALS: BP 159/79
[2017-02-12 06:54] LABS: CHLORIDE 97 MEQ/L (99-109); CREATININE 0.9 MG/DL (0.6-1.3); GFR ESTIMATE (CALCULATED) > 59 mL/min/ (58.99-99999); GLUCOSE 95 mg/dL (70-99); POTASSIUM 3.2 MEQ/L (3.7-5.4); SODIUM 137 MEQ/L (136-147); UREA NITROGEN (BUN) 11 mg/dL (9-23)
[2017-02-12 11:14] VITALS: BP 133/63
[2017-02-12 15:40] VITALS: BP 143/71
[2017-02-12 20:45] VITALS: BP 100/54
[2017-02-13 04:00] VITALS: BP 110/67
[2017-02-13 06:03] LABS: BASOPHIL (%) 0.2 % (0-1); EOSINOPHIL (%) 2.7 % (0-5); EOSINOPHIL COUNT 0.3 K/uL (0-0.3); HEMATOCRIT 26.7 % (38.0-50.0); HEMOGLOBIN 8.3 G/DL (12.5-16.6); IMMATURE GRANULOCYTE (%) 0.4 % (0.0-0.7); LYMPHOCYTE (%) 14.4 % (15-42); LYMPHOCYTE COUNT 1.6 K/uL (1.0-2.8); MCH 25.2 PG (29.0-34.0); MCHC 31.1 G/DL (30.0-36.0); MCV 80.9 FL (86-99); MONOCYTE (%) 10.7 % (3-12); MONOCYTE COUNT 1.2 K/uL (0-0.8); NEUTROPHIL (%) 71.6 % (45-76); NEUTROPHIL COUNT 7.8 K/uL (1.8-6.4); PLATELET COUNT 357 K/uL (156-360); RBC DIS.WIDTH-CV 16.6 % (11.8-14.6); RBC DIS.WIDTH-SD 48.7 % (39-53); WHITE BLOOD COUNT 10.9 K/uL (4.1-10.2)
[2017-02-13 06:31] LABS: CHLORIDE 97 MEQ/L (99-109); GFR ESTIMATE (CALCULATED) > 59 mL/min/ (58.99-99999); GLUCOSE 103 mg/dL (70-99); POTASSIUM 3.3 MEQ/L (3.7-5.4); SODIUM 135 MEQ/L (136-147); UREA NITROGEN (BUN) 9 mg/dL (9-23)
[2017-02-13 06:53] VITALS: BP 135/77
[2017-02-13 11:15] VITALS: BP 146/75
[2017-02-13] MEDS ORDERED: METOPROLOL TART50 MG PO (16:44)
[2017-02-13] MEDS ORDERED: MYLICON,MYLANTA80 MG PO (16:44)
[2017-02-13] MEDS ORDERED: PANTOPRAZOLE SO40 MG PO (16:44)
[2017-02-13] MEDS ORDERED: NIFEDIPINE ER60 MG PO (16:44)
[2017-02-13] MEDS ORDERED: QUETIAPINE FUMA25 MG PO (16:44)
[2017-02-13] MEDS ORDERED: DICYCLOMINE HCL10 MG PO (16:44)
== END 2017-02-13 17:33 | disposition home health service (06) | DRG 326 ==
LOC: EME 17:37 → EDOF 02-02 01:24 → ENRESERV 02-02 01:24 → 2EAST 02-02 01:24 → ENRESERV 02-02 02:00 → 2EAST 02-02 03:00 → ENRESERV 02-04 15:35 → 2EAST 02-04 16:28 → 4WEST 02-04 17:00 → ENRESERV 02-06 16:07 → CANRESERV 02-06 18:25 → 4WEST 02-06 20:39 → CANRESERV 02-09 15:56 → ENRESERV 02-09 15:56 → 5EAST 02-09 18:25
PROVIDERS: Anesthesiology; Emergency Medicine; Hospitalist; Internal Medicine; Physician Assistant; Physician Assistant Medical; Physician Assistant Surgical; Specialist; Student in an Organized Health Care Education/Training Program; Surgery
PROC: 0DV44ZZ Restriction of Esophagogastric Junction, Percutaneous Endoscopic Approach (ICD-10-PCS; principal; 2017-02-04)
PROC: 0BQT4ZZ Repair Diaphragm, Percutaneous Endoscopic Approach (ICD-10-PCS; principal; 2017-02-04)
PROC: 0DS64ZZ Reposition Stomach, Percutaneous Endoscopic Approach (ICD-10-PCS; principal; 2017-02-04)
PROC: 5A1935Z Respiratory Ventilation, Less than 24 Consecutive Hours (ICD-10-PCS; principal; 2017-02-04)
PROC: 0BUT4JZ Supplement Diaphragm with Synthetic Substitute, Percutaneous Endoscopic Approach (ICD-10-PCS; principal; 2017-02-04)
DX: K44.0 Diaphragmatic hernia with obstruction, without gangrene (principal); J95.821 Acute postprocedural respiratory failure; Y83.8 Other surgical procedures as the cause of abnormal reaction of the patient, or of later complication, without mention of misadventure at the time of the procedure; Y92.238 Other place in hospital as the place of occurrence of the external cause; J44.9 Chronic obstructive pulmonary disease, unspecified; D50.9 Iron deficiency anemia, unspecified; E03.9 Hypothyroidism, unspecified; E78.5 Hyperlipidemia, unspecified; E87.6 Hypokalemia; I12.9 Hypertensive chronic kidney disease with stage 1 through stage 4 chronic kidney disease, or unspecified chronic kidney disease; N18.2 Chronic kidney disease, stage 2 (mild); I25.10 Atherosclerotic heart disease of native coronary artery without angina pectoris; G30.9 Alzheimer's disease, unspecified; F02.81 Dementia in other diseases classified elsewhere, unspecified severity, with behavioral disturbance; K92.1 Melena; Z87.891 Personal history of nicotine dependence; I25.2 Old myocardial infarction; I71.4 Abdominal aortic aneurysm, without rupture
CPT/HCPCS: 36600; 71010; 71020; 74000; 74020; 74177; 74220; 74247; 80048; 80053; 81003; 82803; 83605; 83690; 83735; 84100; 84145 90; 84443; 84484; 85014; 85018; 85025; 85027; 85610; 86140; 86141; 87040; 87070; 87205; 87641; 88302; 93005; 94002; 94003; 94640 76; 94760; 94799; 99202; 99281; 99285; C9113; J0131; J0330; J0360; J1100; J1170; J1885; J2270; J2405; J2543; J2704; J2710; J3010; J3480; J7030; J7050